=== PATIENT | male | born 1965 | race Caucasian/White ===

== ENCOUNTER 2021-03-27 09:18 | Outpatient (CLI) | payer BC, SELFPAY ==
--- NOTE | 2021-03-27 09:59 | ECG_ITS ---
Measurements Intervals [place] Rate: 76 P: 7 [place]: 179 QRS: 34 QRSD: 116 T: 24 QT: 382 QTc: 432 Interpretive Statements SINUS RHYTHM INTRAVENTRICULAR CONDUCTION DELAY BASELINE WANDER- II, III BORDERLINE ECG Electronically Signed On 03-27-2021 10:26:37 K [employer] by Alexandre Hdez D.O.
== END 2021-03-27 09:19 | disposition home or self-care (01) ==
PROVIDERS: PCP Family Medicine; Visit Provider Family Medicine
DX: R00.0 Tachycardia, unspecified (principal); I10 Essential (primary) hypertension
CPT/HCPCS: 93005

== ENCOUNTER → 2023-04-09 07:53 | Outpatient (CLI) | payer BC, SELFPAY ==
--- NOTE | ~2023-04-09 | US_ITS ---
Limited Abdominal Sonogram: Real-time sonographic imaging of the right upper quadrant was performed. Clinical History: Abnormal serum enzyme levels Findings: The liver appears echogenic, with no evidence of mass lesion or bile duct dilatation. Main portal vein demonstrates normal direction of flow. The gallbladder is well distended, and appears no rmal with no evidence of gallstone or wall thickening. The common bile duct measures 3 mm. The visua lized pancreas, aorta, and IVC are unremarkable. Impression: Diffuse fatty infiltration of liver. Reviewed, dictated and finalized at location [facility] [employer] Impression: Diffuse fatty infiltration of liver.
== END ==
PROVIDERS: PCP Family Medicine; Visit Provider Family Medicine
DX: K76.0 Fatty (change of) liver, not elsewhere classified (principal); R74.8 Abnormal levels of other serum enzymes
CPT/HCPCS: 76705

== ENCOUNTER 2023-06-01 00:36 | Day surgery (SDC) | payer BC, SELFPAY ==
[2023-05-20 14:02] VITALS: BMI 30.9
[2023-06-01 13:13] VITALS: BP 137/99; PULSE 79; RESP 16; TEMP 36.3; O2SAT 97
[2023-06-01] MEDS: LACTATED RINGERS 1,000 ML 150 ML IV CONT (13:24)
--- NOTE | 2023-06-01 14:01 | WPDANESEPPF ---
Anes - Initial Pre Proc Eval Procedure: Operation Date: 06/01/23 14:00 Proposed Procedures p Colonoscopy - Salvador Tovar MD Date/Time: 06/01/23 14:01 Surgeon: Salvador Tovar MD Pre Op Diagnosis: other fecal abnormalities Patient Data Age: 57 Gender: M Height: 1.78 m Weight: 98 kg Last Vital Signs Temp 97.4 F L 06/01/23 13:13 Pulse 79 06/01/23 13:13 Resp 16 06/01/23 13:13 BP 137/99 H 06/01/23 13:13 Pulse Ox 97 06/01/23 13:13 O2 Del Method Room Air 06/01/23 13:13 Allergies Allergy/AdvReac Type Severity Reaction Status Date / Time rosuvastatin AdvReac Unknown Unknown Verified 06/01/23 13:10 Home Medications Medication Instructions Recorded Confirmed Type allopurinol 300 mg tablet 300 mg PO DAILY #90 tabs 06/11/22 06/01/23 Rx pravastatin 40 mg tablet 40 mg PO DAILY #90 tabs 06/11/22 06/01/23 Rx ezetimibe 10 mg tablet (Zetia) 10 mg PO DAILY #90 tabs 12/14/22 06/01/23 Rx montelukast 10 mg tablet 10 mg PO QHS #90 tabs 12/14/22 06/01/23 Rx metoprolol succinate 25 mg 25 mg PO DAILY #90 tabs 03/16/23 06/01/23 Rx tablet,extended release 24 hr omeprazole 20 mg capsule,delayed 20 mg PO DAILY #90 caps 03/18/23 06/01/23 Rx release Patient hx anesthesia problems: none Family hx anesthesia problems: none Results Review: All pre-operative results and documents have been reviewed as part of the pre-operative evaluation. [facility] Past Medical History Medical History Essential hypertension H/O: gout Mixed hyperlipidemia Pre-diabetes Thrombosed external hemorrhoid Family History Family History Father Hypertension Grandparent Hypertension Other Family history of malignant neoplasm Social History Social History Smoking status: Never smoker Second hand tobacco smoke exposure: No Alcohol intake: current Drinks per week: 2 Substance use: never Substance use type: does not use Lack of Transportation: No Lack of Food: Never True Current Housing: I Have Housing Concerned About Future Housing: No Difficulty Paying Gas/Electric Bills: No Difficulty Paying for Meds: No Currently Unemployed: No Education: High School Diploma/GED Difficulty w/ Childcare or Family Care: No Living arrangements: with family Occupation/Education: occupation Gender identity (if verbalized by the patient): Male Sexual Orientation (if Verbalized by the Patient): Straight or Heterosexual Spiritual care concerns: No Agree to blood products: Yes Anes - Eval Final PreProcedure Day of Procedure 06/01/23 14:01 Patient weight: obese Heart: regular rate and rhythm Lungs: clear to auscultation Airway: Mallampati scale class II Neurological: alert and oriented Last oral intake: >/= 8 hours ASA classification: II Emergent: no Anesthetic plan: proceed Anesthesia type and monitoring: general GIVS and standard monitoring Results Review: All pre-operative results and documents have been reviewed as part of the pre-operative evaluation. Informed Consent: The patient's anesthetic plan and its attendant risks and benefits were discussed with the patient/family/POA. Questions were solicited and answers provided to the satisfaction of the patient/family/POA.
--- NOTE | 2023-06-01 14:01 | PM.HPGS ---
History of Present Illness History of Present Illness Consent: Risks, benefits, and alternatives have been discussed and questions answered. Patient agrees to proceed with procedure. Chief complaint: other fecal abnormalities Narrative: Eliezer Rivera is a 57 year old male here for first colonoscopy, + cologuard Review of Systems Review of Systems: All systems reviewed & are unremarkable except as noted in HPI and below PMFSH Past Medical History Medical History (Updated 06/01/23 @ 14:03 by Salvador Tovar MD) Essential hypertension H/O: gout Mixed hyperlipidemia Positive colorectal cancer screening using Cologuard test Pre-diabetes Thrombosed external hemorrhoid Family History Family History Father Hypertension Grandparent Hypertension Other Family history of malignant neoplasm Social History Social History Smoking status: Never smoker Second hand tobacco smoke exposure: No Alcohol intake: current Drinks per week: 2 Substance use: never Substance use type: does not use Lack of Transportation: No Lack of Food: Never True Current Housing: I Have Housing Concerned About Future Housing: No Difficulty Paying Gas/Electric Bills: No Difficulty Paying for Meds: No Currently Unemployed: No Education: High School Diploma/GED Difficulty w/ Childcare or Family Care: No Living arrangements: with family Occupation/Education: occupation Gender identity (if verbalized by the patient): Male Sexual Orientation (if Verbalized by the Patient): Straight or Heterosexual Spiritual care concerns: No Agree to blood products: Yes Meds Home Medications and Allergies Home Medications Medication Instructions Recorded Confirmed Type allopurinol 300 mg tablet 300 mg PO DAILY #90 tabs 06/11/22 06/01/23 Rx pravastatin 40 mg tablet 40 mg PO DAILY #90 tabs 06/11/22 06/01/23 Rx ezetimibe 10 mg tablet (Zetia) 10 mg PO DAILY #90 tabs 12/14/22 06/01/23 Rx montelukast 10 mg tablet 10 mg PO QHS #90 tabs 12/14/22 06/01/23 Rx metoprolol succinate 25 mg 25 mg PO DAILY #90 tabs 03/16/23 06/01/23 Rx tablet,extended release 24 hr omeprazole 20 mg capsule,delayed 20 mg PO DAILY #90 caps 03/18/23 06/01/23 Rx release Allergies Allergy/AdvReac Type Severity Reaction Status Date / Time rosuvastatin AdvReac Unknown Unknown Verified 06/01/23 13:10 Vital Signs Vital Signs - 24 hr 06/01/23 13:13 Temperature 97.4 F L Pulse Rate 79 Respiratory Rate 16 Blood Pressure 137/99 H Pulse Oximetry 97 Oxygen Delivery Room Air Exam Const: General: comfortable and no acute distress HENMT: Face/Nose/Sinus: Normal nares present Eyes: General: appearance normal, both eyes and all related structures Neck: Neck: no JVD Resp: Auscultation: clear to auscultation bilaterally Cardio: Rate: regular rate Rhythm: regular rhythm GI: Inspection: non-distended GI Palp: Yes Soft to palpation Skin: General skin exam: normal color Neuro: General: gait normal Speech: normal speech Extrem: General: normal to inspection Psych: Mental Status: mental status grossly normal Assessment and Plan Assessment and plan (1) Positive colorectal cancer screening using Cologuard test: Code(s): R19.5 - Other fecal abnormalities Status: Acute Assessment and Plan: colonoscopy
[2023-06-01 14:25] VITALS: BP 121/81; PULSE 79; RESP 16; O2SAT 95
[2023-06-01 14:35] VITALS: BP 130/90; PULSE 83; RESP 16; O2SAT 95
== END 2023-06-01 14:56 | disposition home or self-care (01) ==
PROVIDERS: PCP Family Medicine; Visit Provider Internal Medicine Gastroenterology
PROC: 0DJD8ZZ Inspection of Lower Intestinal Tract, Via Natural or Artificial Opening Endoscopic (ICD-10-PCS; CPT 45378; principal; 2023-06-01 14:00)
DX: R19.5 Other fecal abnormalities (principal); D12.3 Benign neoplasm of transverse colon; K63.5 Polyp of colon; K64.8 Other hemorrhoids; K57.30 Diverticulosis of large intestine without perforation or abscess without bleeding; I10 Essential (primary) hypertension; E78.2 Mixed hyperlipidemia; R73.03 Prediabetes; E66.9 Obesity, unspecified; Z68.31 Body mass index [BMI] 31.0-31.9, adult; Z80.9 Family history of malignant neoplasm, unspecified
CPT/HCPCS: 45380; 45385; 88305; J2704; J7120